=== PATIENT | male | born 1975 | race Caucasian/White ===

== ENCOUNTER 2019-10-19 20:02 | Emergency (ER) | payer OTHER ==
[2019-10-19] MEDS ORDERED: SODIUM CHLORIDE 1,000 ML IV STA (20:06)
[2019-10-19] MEDS ORDERED: KETOROLAC TROMETHAMINE 30 MG/1 ML VIAL IVPUSH ONE (20:06)
[2019-10-19] MEDS ORDERED: ONDANSETRON 4 MG/2 ML VIAL IVPUSH ONE (20:06)
[2019-10-19 20:08] VITALS: TEMP 98; BMI 27.9
--- NOTE | 2019-10-19 20:09 | PDOC ---
Rapid Medical Evaluation Chief Complaint: Pain Time Seen by Provider: 10/19/19 20:06 Medical Evaluation: 10/19/19 20:07 CC: left flank, hx renal colic with sx for stone 10 days in [place], urologist in [facility], + nausea w/ penile spasm Exam: left cva tenderness, left flank tenderness Plan: labs, urine, meds, spiral ct Discharge Disposition - Diagnosis Renal colic on left side - Referrals - Patient Instructions - Post Discharge Activity
--- NOTE | 2019-10-19 21:22 | PDOC ---
History of Present Illness - General Chief Complaint: Pain Stated Complaint: ABD PAIN Time Seen by Provider: 10/19/19 20:06 - History of Present Illness Initial Comments: 10/19/19 22:04 44yo M w/ PMH L-sided kidney stones and laser lithotripsy 10days ago (by Dr. Declan Dsouza, urology) p/w L flank and LLQ pain. He states this feels like a kidney stone and was told to expect pain as the stone progressed distally through the ureter. He describes it as 7-8/10 pain. Denies trauma, hematuria or penile discharge, testicular pain, penile pain, change in bowel habits (last BM was this AM), fevers, ABD surgery. Denies h/o hernias. 10/19/19 22:25 Past History - Travel History Traveled outside of the country in the last 30 days: No Close contact w/someone who was outside of country & ill: No - Medical History Allergies/Adverse Reactions: Allergies Allergy/AdvReac Type Severity Reaction Status Date / Time No Known Allergies Allergy Verified 10/19/19 20:08 Home Medications: Ambulatory Orders Naproxen [Naprosyn] 500 mg PO BID PRN 10 Days #20 tablet MDD 1000mg 10/19/19 COPD: No Kidney Stones: Yes (laser lithotripsy 10days ago (Declan Dsouza MD)) - Psycho-Social/Smoking History Smoking History: Never smoked - Substance Abuse Hx (Audit-C & DAST Scrn) How often the patient has a drink containing alcohol: Never Score: In Men: 4 or > Positive; In Women: 3 or > Positive: 0 Screen Result (Pos requires Nsg. 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 was told by urologist that pain was to be expected as the stone moves. ). No: Abdominal Distended, Abd. Pain w/ defecation, Blood Streaked Bowels, Constipated, Diarrhea, Nausea, Poor Appetite, Rectal Bleeding, Vomiting : Yes: Burning, Dysuria, Flank Pain, Pain. No: Discharge, Frequency, Hematuria, Incontinence, Urgency, Testicular Mass, Testicular Swelling, Lesions, Testicular Pain Integumentary: No: Bruising, Rash Neurological: No: Headache, Weakness, Dizziness Psychiatric: No: Change in Appetite *Physical Exam - Vital Signs Last Vital Signs Temp Pulse Resp BP Pulse Ox 98 F 90 18 135/85 99 10/19/19 20:03 10/19/19 20:03 10/19/19 20:03 10/19/19 20:03 10/19/19 20:03 - Physical Exam General Appearance: Yes: Nourished, Appropriately Dressed, Apparent Distress, Moderate Distress (uncomfortable in bed). No: Alcohol on Breath HEENT: positive: [place], Normal Voice, Symmetrical Neck: positive: Trachea midline, Normal Thyroid. negative: Tender Respiratory/Chest: positive: Lungs Clear, Normal Breath Sounds. negative: Chest Tender, Respiratory Distress, Accessory Muscle Use, Labored Respiration Cardiovascular: positive: Regular Rhythm, Regular Rate, S1, S2. negative: Mur mur Gastrointestinal/Abdominal: positive: Normal Bowel Sounds, Tender (L flank, LUQ, and LLQ), Guarding (over L abdomen), Tenderness. negative: Organomegaly, Pulsatile Mass, Increased Bowel Sounds, Decreased BS, Protuberent, Distended, Rebound, Hernia Male Genitalia: negative: testicular tenderness Musculoskeletal: positive: Normal Inspection. negative: CVA Tenderness, CVA Tenderness (R), CVA Tenderness (L), Vertebral Tenderness Integumentary: positive: Normal Color, Dry, Warm Neurologic: positive: Fully Oriented, Alert, Normal Mood/Affect ED Treatment Course - LABORATORY CBC & Chemistry Diagram: 10/19/19 Unknown 10/19/19 22:12 Medical Decision Making - Medical Decision Making 10/19/19 23:29 Kidney stone Bowel pathology - no change in bowel habits, no fevers, no constipation or diarrhea Hernia - no h/o hernia, no masses palpated Torsion - no testicular pain, swelling, tenderness. Normal pelvic exam BMP shows BUN and Cr wnl Pt's pain better w/ IV toradol. D/C home w/ instructions to f/u w/ urology tomorrow. Discharge - Discharge Information Problems reviewed: Yes Clinical Impression/Diagnosis: Renal colic on left side Condition: Improved Disposition: HOME - Admission No - Additional Discharge Information Prescriptions: Naproxen [Naprosyn] 500 mg PO BID PRN 10 Days #20 tablet MDD 1000mg PRN Reason: Pain - Follow up/Referral Referrals: Osiel Honrer [Primary Care Provider] - Declan Dsouza [Other] - Patient Discharge Instructions Patient Printed Discharge Instructions: Extracorporeal Shock Wave Lithotripsy, DI for Kidney Stones, DI for Extracorporeal Shock Wave Lithotripsy, Naproxen Additional Instructions: Lleg al servicio de urgencias porque nany dolor en el lado rayo del abdomen despus de noah litotricia hace nydia chaudhari. Cuando estuvo aqu, recibi un analgsico intravenoso y evaluamos keating juany y orina. Tambin realizamos noah ecografa de flynn riones y vejiga. Decidimos que es seguro enviarlo a casa. Hemos enviado a keating farmacia noah receta de naproxeno, un analgsico similar al advil. Puede tremayne 1 de estas pldoras hasta 2 veces al da, con al menos 12 horas de diferencia. Tmelo con comida. Puede combinarse con otros analgsicos que le hayan recetado, mariya no tome ningn otro analgsico. Comunquese con keating urlogo maana o dentro de las 24 horas posteriores a keating salida del departamento de emergencias. Regrese al departamento de emergencias si el dolor se vuelve intolerable con el analgsico o si presenta sntomas graves. You came to the emergency department because you had pain on the left side of your abdomen after a lithotripsy ten days ago. When you were here, you got some IV pain medicine, and we evaluated your blood and urine. We also performed an ultrasound of your kidneys and bladder. We decided that it is safe to send you home. We have sent a prescription of naproxen, a pain medicine similar to advil, to your pharmacy. You may take 1 of these pills up to 2 times per day, at least 12 hours apart. Take this with food. It may be combined with the other pain medicine prescribed to you, but do not take any other pain medicine. Please follow up with your urologist tomorrow, or within 24 hours of leaving the emergency department. Please come back to the emergency department if the pain becomes intolerable on the pain medicine, or if you develop any severe symptoms. Print Language: [place] - Post Discharge Activity
[2019-10-19] MEDS ORDERED: KETOROLAC TROMETHAMINE 30 MG/1 ML VIAL ONE (21:25)
[2019-10-19 21:46] LABS: EPI CELLS 3 /uL (0-25.1); HYALINE CASTS 1 /uL (0-3.1); URINE APPEARANCE CLEAR; URINE BACTERIA 11 /uL (0-1359); URINE BILIRUBIN NEGATIVE (NEGATIVE); URINE COLOR YELLOW; URINE GLUCOSE (UA) NEGATIVE (NEGATIVE); URINE KETONE NEGATIVE (NEGATIVE); URINE LEUK ESTERASE NEGATIVE (NEGATIVE); URINE NITRITE NEGATIVE (NEGATIVE); URINE PROTEIN NEGATIVE (NEGATIVE); URINE RBC 437 /uL (0-23.9); URINE WBC 2 /uL (0-25.8)
[2019-10-19] MEDS ORDERED: KETOROLAC TROMETHAMINE 15 MG/ML VIAL IVPUSH ONE (21:54)
[2019-10-19 22:43] LABS: BLOOD UREA NITROGEN 14.6 mg/dL (7-18); CALCIUM 8.6 mg/dL (8.5-10.1); CREATININE 1.3 mg/dL (0.55-1.3); POTASSIUM 4.3 mmol/L (3.5-5.1)
--- NOTE | 2019-10-19 23:34 | PDOC ---
Documentation entered by Marnie Canela SCRIBE, acting as scribe for Sho Acosta MD. Sho Acosta MD: This documentation has been prepared by the scribe, Marnie Mcneill SCRIBE, under my direction and personally reviewed by me in its entirety. I confirm that the documentation accurately reflects all work, treatment, procedures, and medical decision making performed by me. Attending Attestation - Resident Resident Name: Toby Goddard - ED Attending Attestation I have performed the following: I have examined & evaluated the patient, The case was reviewed & discussed with the resident, I agree w/resident's findings & plan, Exceptions are as noted - HPI HPI: 10/19/19 23:22 The patient is a 44 year old male with a significant PMH of kidney stones(left) and laser lithotripsy (10 days ago) who is presenting to the ED for evaluation of left flank pain radiating to his left lower quadrant pain, being 8 out of 10 in severity. Patient notes that it feels like Kidney stone pain. The patient denies chest pain, shortness of breath, cough, headache and dizziness. Denies fever, chills, nausea, vomiting, diarrhea and constipation. Denies dysuria, frequency, urgency and hematuria. Urologist: Dr. Declan Dsouza Allergies: NKA Past surgical history: Laser Lithotripsy - Physicial Exam PE: 10/19/19 23:18 General: well appearing Abdomen: soft, nt, nd, no rebound, no guarding Back: no CVA tenderness - Medical Decision Making 10/19/19 23:18 44 yo M with flank pain, known kidney stones and s/p lithotripsy 10 days prior, seen by his who informed patient that he would still have residual pain when the stones move and exam unremarkabl. Pain likely expected post-lithotripsy pain described by urologist however will r/o infection and check Cr. Plan: -labs -urine -toradol -reassess, if labs unremarkable will d/c with return precautions and recommend addition of NSAID for pain, pt to f/u with his urologist. This clinical encounter is taking place during a federal and state health care emergency attributable to the novel [place] Virus pandemic. The [place] of the Department of Health and Human Services has declared, pursuant to the Public Health Service Act 319F-3 (42 U.S.C. 247d-6d), that a covered persons activities related to medical countermeasures against COVID-19 will be immune from liability under Federal and State law. Discharge - Discharge Information Problems reviewed: Yes Clinical Impression/Diagnosis: Renal colic on left side Condition: Improved Disposition: HOME - Additional Discharge Information Prescriptions: Naproxen [Naprosyn] 500 mg PO BID PRN 10 Days #20 tablet MDD 1000mg PRN Reason: Pain - Follow up/Referral Referrals: Declan Dsouza [Other] Osiel Horner [Primary Care Provider] - - Patient Discharge Instructions Patient Printed Discharge Instructions: Extracorporeal Shock Wave Lithotripsy, DI for Kidney Stones, DI for Extracorporeal Shock Wave Lithotripsy, Naproxen Additional Instructions: Lleg al servicio de urgencias porque nany dolor en el lado rayo del abdomen despus de noah litotricia hace nydia chaudhari. Cuando estuvo aqu, recibi un analgsico intravenoso y evaluamos keating juany y orina. Jules realizamos noah ecografa de flynn riones y vejiga. Decidimos que es seguro enviarlo a casa. Hemos enviado a keating farmacia noah receta de naproxeno, un analgsico similar al advil. Puede tremayne 1 de estas pldoras hasta 2 veces al da, con al menos 12 horas de diferencia. Tmelo con comida. Puede combinarse con otros analgsicos que le hayan recetado, mariya no tome ningn otro analgsico. Comunquese con keating urlogo maana o dentro de las 24 horas posteriores a keating salida del departamento de emergencias. Regrese al departamento de emergencias si el dolor se vuelve intolerable con el analgsico o si presenta sntomas graves. You came to the emergency department because you had pain on the left side of your abdomen after a lithotripsy ten days ago. When you were here, you got some IV pain medicine, and we evaluated your blood and urine. We also performed an ultrasound of your kidneys and bladder. We decided that it is safe to send you home. We have sent a prescription of naproxen, a pain medicine similar to advil, to your pharmacy. You may take 1 of these pills up to 2 times per day, at least 12 hours apart. Take this with food. It may be combined with the other pain medicine prescribed to you, but do not take any other pain medicine. Please follow up with your urologist tomorrow, or within 24 hours of leaving the emergency department. Please come back to the emergency department if the pain becomes intolerable on the pain medicine, or if you develop any severe symptoms. Print Language: KOREAN - Post Discharge Activity
[2019-10-19 23:56] VITALS: BP 122/78; PULSE 74
== END 2019-10-19 23:55 | disposition home or self-care (01) ==
LOC: JER 20:02
PROC: 3E0333Z Introduction of Anti-inflammatory into Peripheral Vein, Percutaneous Approach (ICD-10-PCS; principal; 2019-10-19)
PROC: 3E033GC Introduction of Other Therapeutic Substance into Peripheral Vein, Percutaneous Approach (ICD-10-PCS; 2019-10-19)
PROC: 3E0337Z Introduction of Electrolytic and Water Balance Substance into Peripheral Vein, Percutaneous Approach (ICD-10-PCS; 2019-10-19)
DX: N23 Unspecified renal colic (principal)
CPT/HCPCS: 36415; 80048; 81003; 87086; 99284-25